=== PATIENT | female | born 1960 | race Caucasian/White ===

== ENCOUNTER 2017-01-08 14:02 | Inpatient (IN) | payer OTHER ==
[~2017-01-08] VITALS: Ht 162.6 cm; Wt 92.1 kg
[2017-01-08] MEDS ORDERED: MULTI-VITAMIN1 EACH PO (15:04)
[2017-01-08] MEDS ORDERED: ZOFRAN ODT4 MG PO (15:05)
[2017-01-08] MEDS ORDERED: VITAMIN C500 M1 PO (15:05)
[2017-01-08] MEDS ORDERED: VITAMIN D31000 UNI1 PO (15:06)
[2017-01-08] MEDS ORDERED: AMILORIDE HCL-1 EACH PO (15:07)
[2017-01-08] MEDS ORDERED: TYLENOL325 MG PO (15:08)
[2017-01-08] MEDS ORDERED: NAPROSYN500 MG PO (15:08)
[2017-01-08] MEDS ORDERED: CHERATUSSIN AC10 ML PO (15:09)
[2017-01-08] MEDS ORDERED: ULTRAM50 MG PO (15:09)
[2017-01-08] MEDS ORDERED: FISH OIL1 GM PO (15:10)
[2017-01-08] MEDS ORDERED: VITAMIN B COMP1 EACH PO (15:10)
[2017-01-09] MEDS ORDERED: OMNICEF300 MG PO (14:31)
== END 2017-01-09 15:00 | disposition short-term general hospital (02) | DRG 392 ==
LOC: IP 14:02
PROVIDERS: ADMIT Family Medicine
DX: K52.9 Noninfective gastroenteritis and colitis, unspecified (principal); E86.0 Dehydration; I10 Essential (primary) hypertension; M15.9 Polyosteoarthritis, unspecified; Z88.1 Allergy status to other antibiotic agents; Z79.899 Other long term (current) drug therapy; Z87.891 Personal history of nicotine dependence
CPT/HCPCS: G0378; G0379; J0696; J1885; J2405